=== PATIENT | male | born 1970 | race Caucasian/White ===

== ENCOUNTER 2024-04-08 08:20 | Outpatient (CLI) | payer BC | END 2024-04-08 08:21 | disposition home or self-care (01) | LOC: CSHMRI 08:20 | PROVIDERS: ATTEND Orthopaedic Surgery | DX: M77.11 Lateral epicondylitis, right elbow (principal); S56.511A Strain of other extensor muscle, fascia and tendon at forearm level, right arm, initial encounter; S53.431A Radial collateral ligament sprain of right elbow, initial encounter ==